=== PATIENT | male | born 1980 | race Caucasian/White ===

== ENCOUNTER 2025-03-21 12:28 | Emergency (ER) | payer BC ==
[~2025-03-21] VITALS: Ht 165.1 cm; Wt 80.1 kg
--- NOTE | 2025-03-21 12:45 | Physician Documentation ---
History of Present Illness ~ Chief Complaint: Shoulder pain Stated Complaint: R SIDED SHOULDER/NECK/BACK PAIN Time Seen by MD: 14:41 HPI This 54-year-old male who presents to the emergency department due to concerns for numbness and loss of strength in the right hand. Patient states his ulnar digits feel numb and he has decreased dexterity of the right hand as well. He reports a history of right shoulder pain. He also notes upper back and neck pain. No trauma. Has seen his primary care provider, who directed him here due to concerns that he is getting worse rather than better and would benefit from imaging. He also notes some numbness in the right foot but denies incontinence or saddle anesthesia. Medication Reconciliation Allergies: Coded Allergies: No Known Allergies (Unverified , 03/21/25) Review of Systems Constitutional: Denies: chills, fever, weakness Eyes: Denies: pain, blurred vision ENT: Denies: ear pain, nose pain, throat pain, mouth pain Respiratory: Denies: cough, shortness of breath Cardiovascular: Denies: chest pain, palpitations Gastrointestinal: Denies: abdominal pain, nausea, vomiting Genitourinary: Denies: burning, dysuria Male Genitalia: Denies: penile discharge, testicular pain Neurological: Denies: headache, dizziness Musculoskeletal: Denies: pain, swelling Integumentary: Denies: rash, lesions Allergic/Immunologic: Denies: hives, itching Hematologic/Lymphatic: Denies: no symptoms reported Psychiatric: Denies: depression, anxiety Physical Exam Vital Signs: Temperature: 98.0, Source: Temporal, Heart Rate: 75, Respiratory Rate: 16, BP: 120/64, Pulse Oximetry: 97, Weight: 80.100 Oxygen Flow Rate: 0 Physical Exam General: Awake and Alert, no acute distress. HEENT: Conjunctiva pink, Sclera clear, Mucus Membranes moist. Neck: Supple without masses and tenderness. Resp: Unlabored. Lungs clear to auscultation bilaterally. Heart: Regular Rate and rhythm, normal S1 and S2 without murmur, rub or gallop. Musculoskeletal: Patient has a positive Tinel sign at the right elbow. Patient has tenderness to palpation of the area with the interscapular area as well as levator scapulae. Patient has decreased range of motion of the right shoulder due to pain. Patient has decreased light touch sensation in the ulnar nerve distribution of the right hand. Patient has 3+/five strength of the dorsal interosseous muscles of the right hand. Abductor pollicis brevis are 5/5 strength bilaterally. Motor function and capillary refill are intact distally. Extremities: No cyanosis,clubbing or edema. Skin: Warm and Dry. Progress Results/Orders Results/Orders Vital Signs 03/21/25 12:37 Temp 98.0 Pulse 75 Resp 16 B/P (MAP) 120/64 Pulse Ox 97 O2 Flow Rate 0 EKG/XRAY/CT/US/VASC/MRI Bone/Soft Tissue X-Ray (Ext.) : Additional Comment X-ray of right shoulder shows no sign of acute fracture, bones in anatomic alignment, no osteolytic or blastic lesions. DIAGNOSTIC RADIOLOGY Patient: GRETA MARTINS Medical Record: [id number] [facility] : 1980, Age: 44 Sex: Male Location: ER Patient Status: [facility] ER Service Date/Time: 03/21/25/ 1243 Ordering Physician: KARLA ALVAREZ NP Exam: SHOULDER, COMPLETE (MIN 2 VWS) CLINICAL INDICATION: pain, numbness right hand TECHNIQUE: 3 radiographic views of the right shoulder were obtained. Comparison: None FINDINGS/IMPRESSION: There is no evidence of acute fracture or dislocation. The visualized joint space is well maintained. The alignment is anatomical. There is no radiopaque foreign body. Electronically Signed by:ROBERTA SILVA MD Date & Time: 03/21/25 1318 Dictated by: ROBERTA SILVA MD Dictation date and time: 03/21/25 1255 Primary Care Provider: NO PRIMARY CARE PROVIDER cc: KARLA ALVAREZ NP ~ CT : Impression CAT SCAN Patient: GRETA MARTINS Medical Record: [id number] [facility] : 1980, Age: 44 Sex: Male Location: ER Patient Status: [facility] ER Service Date/Time: 03/21/251242 Ordering Physician: KARLA ALVAREZ NP Exam: CT CERVICAL SPINE EXAM: CT CT CERVICAL SPINE HISTORY: numbness right hand COMPARISON: None CTDIvol 22 mGy, DLP 509 mGy*cm. TECHNIQUE: Multiple axial CT images of the spine were obtained using bone algorithm. Axial and coronal reformatting was done. Bone and soft tissue windows were reviewed. FINDINGS: No evidence of definite acute fracture, spinal dislocation, or significant appearing acute subluxation is seen. IMPRESSION: No definite CT evidence of acute fracture or dislocation of the bony cervical spine. Electronically Signed by:CANDIDO ORTEGA MD Date & Time: 03/21/251399 Dictated by: CANDIDO ORTEGA MD Dictation date and time: 03/21/251399 Primary Care Provider: NO PRIMARY CARE PROVIDER cc: KARLA ALVAREZ NP ~ Medical Decision Making Findings This 54-year-old male who presents to the emergency department due to concerns for numbness and loss of strength in the right hand. Patient states his ulnar digits feel numb and he has decreased dexterity of the right hand as well. He reports a history of right shoulder pain. He also notes upper back and neck pain. No trauma. Has seen his primary care provider, who directed him here due to concerns that he is getting worse rather than better and would benefit from imaging. He also notes some numbness in the right foot but denies incontinence or saddle anesthesia. Patient was given Toradol 30 mg IM in the ED today. Patient will follow up with primary care as soon as possible for referral to physical therapy for further eval and treatment of neck pain/shoulder pain as well as possible referral to orthopedic hand specialist for eval of his cubital tunnel syndrome. Return to ED with any worsening, concerning or changing symptoms. Shared decision-making utilized today. Departure Disposition: HOME / SELF CARE / HOMELESS Impression: Primary Impression: Shoulder pain Qualified Codes: M25.511 - Pain in right shoulder Additional Impression: Cubital tunnel syndrome on right Condition: Improved Discharge Instructions: Cubital Tunnel Syndrome, Shoulder Pain Additional Instructions: Patient was given Toradol 30 mg IM in the ED today. Patient will follow up with primary care as soon as possible for referral to physical therapy for further eval and treatment of neck pain/shoulder pain as well as possible referral to orthopedic hand specialist for eval of his cubital tunnel syndrome. Return to ED with any worsening, concerning or changing symptoms. Shared decision-making utilized today. Referrals: NO PRIMARY CARE PROVIDER (PCP) Signature Scribe Signature: no scribe Attestation: The note accurately reflects work and decisions made by me.Karla Davenport NP 03/21/25 12:44 This note also accurately reflects the work and decisions made by me Anand CROWLEY 03/21/2025 KARLA ALVAREZ NP March 21, 2025 12:45 ANAND ZULETA March 21, 2025 15:42
--- NOTE | 2025-03-21 13:20 | RADIOLOGY REPORT ---
CLINICAL INDICATION: pain, numbness right hand TECHNIQUE: 3 radiographic views of the right shoulder were obtained. Comparison: None FINDINGS/IMPRESSION: There is no evidence of acute fracture or dislocation. The visualized joint space is well maintained. The alignment is anatomical. There is no radiopaque foreign body.
--- NOTE | 2025-03-21 14:03 | RADIOLOGY REPORT ---
EXAM: CT CT CERVICAL SPINE HISTORY: numbness right hand COMPARISON: None CTDIvol 22 mGy, DLP 509 mGy*cm. TECHNIQUE: Multiple axial CT images of the spine were obtained using bone algorithm. Axial and lal l reformatting was done. Bone and soft tissue windows were reviewed. FINDINGS: No evidence of definite acute fracture, spinal dislocation, or significant appearing acute subluxatio n is seen. IMPRESSION: No definite CT evidence of acute fracture or dislocation of the bony cervical spine.
[2025-03-21] MEDS: ketorolac trometh 30MG/ML vial 30 MG/ML VIAL IM ONE (15:53)
[2025-03-21 15:58] VITALS: BP 130/85; PULSE 67; RESP 14; TEMP 98; O2SAT 7
== END 2025-03-21 15:58 | disposition home or self-care (01) ==
LOC: ER 12:29
DX: M25.511 Pain in right shoulder (principal); G56.21 Lesion of ulnar nerve, right upper limb
CPT/HCPCS: 72125; 73030; 96372; 99285; J1885